=== PATIENT | female | born 2000 | race Caucasian/White ===

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

== ENCOUNTER 2022-12-12 19:20 | Emergency (ER) | payer SELFPAY | END 2022-12-12 21:19 | disposition home or self-care (01) | LOC: MW.ED 19:20 | DX: S93.402A Sprain of unspecified ligament of left ankle, initial encounter (principal); X50.1XXA Overexertion from prolonged static or awkward postures, initial encounter | CPT/HCPCS: 73610-26-LT; 73610-LT; 99283 ==

== ENCOUNTER 2023-12-14 16:00 | Inpatient (IN) | payer MEDICAID, OTHER ==
[2023-12-14] MEDS ORDERED: Misoprostol 25 MCG (1/4 of 100 MCG) Tab VAG PRN ×2 (18:07)
[2023-12-14] MEDS ORDERED: Methylergonovine 0.2 MG/1 ML Amp IM PRN (18:07)
[2023-12-14] MEDS ORDERED: Sodium Chloride 0.9% 2.5 ML Syringe FLUSH PRN (18:07)
[2023-12-14] MEDS ORDERED: Misoprostol 200 MCG Tab PO PRN (18:07)
[2023-12-14] MEDS ORDERED: Terbutaline 1 MG/ML SDV SUBCUT PRN (18:07)
[2023-12-14] MEDS ORDERED: Sodium Chloride 0.9% 20 ML SDV IV PRN (18:07)
[2023-12-14] MEDS ORDERED: Lidocaine 1% 50 ML MDV INJECT PRN (18:07)
[2023-12-14] MEDS ORDERED: Carboprost Tromethamine 250 MCG/1 mL Vial IM PRN (18:07)
[2023-12-14] MEDS ORDERED: Tranexamic Acid IN NACL,ISO-OS 1,000 MG in Premix Bag 1 BAG IV PRN (18:07)
[2023-12-14] MEDS ORDERED: Water For Irrigation,Sterile 1,000 ML Container IRR PRN (18:07)
[2023-12-14] MEDS ORDERED: Nalbuphine 10 MG/1 ML Vial IVPUSH PRN (18:07)
[2023-12-14] MEDS ORDERED: Sodium Chloride 0.9% 10 ML Syringe FLUSH PRN (18:07)
[2023-12-14] MEDS ORDERED: Oxytocin/0.9 % Sodium Chloride 30 UNIT/500 ML BAG IV SCH (18:15)
[2023-12-14 18:42] LABS: HEMATOCRIT 32.6 % (37.0-47.0); MEAN CORPUSCULAR HEMOGLOBIN 27.6 pg (28.0-32.0); MEAN CORPUSCULAR HGB CONC 33.7 g/dL (32.0-36.0); MEAN CORPUSCULAR VOLUME 81.9 fL (83.0-99.0); MEAN PLATELET VOLUME 10.9 fL (9.4-12.3); PLATELET COUNT,PLT 234 K/uL (150-400); RED BLOOD CELL COUNT 3.98 M/uL (4.10-5.30); WHITE BLOOD CELL COUNT,WBC 7.72 K/uL (3.9-11.3)
[2023-12-14] MEDS: Acetaminophen 325 MG Tab PO PRN (21:24)
[2023-12-14] MEDS ORDERED: Misoprostol 50 MCG (1/2 of 100 MCG) Tab ONE (23:08)
[2023-12-14] MEDS: Misoprostol 50 MCG (1/2 of 100 MCG) Tab VAG ONE (23:15)
[2023-12-15] MEDS: Ondansetron 4 MG/2 ML SDV IVPUSH PRN (00:02)
[2023-12-15] MEDS: Butorphanol 2 MG/ML SDV IVPUSH PRN (02:56)
[2023-12-15] MEDS: Lactated Ringers 1,000 ML IV SCH (04:02)
[2023-12-15] MEDS ORDERED: Bupivacaine 0.5% 10 ML SDV ONE (04:32)
[2023-12-15] MEDS ORDERED: Phenylephrine HCl In 0.9% NaCl 1 MG/10 ML Syringe ONE (04:32)
[2023-12-15] MEDS ORDERED: Ropivacaine HCl/PF 200 ML ONE (04:32)
[2023-12-15] MEDS: Ropivacaine HCl/PF 400 MG in Premix Bag 1 BAG EPIDUR SCH (04:35)
[2023-12-15] MEDS ORDERED: Phenylephrine HCl In 0.9% NaCl 1 MG/10 ML Syringe IVPUSH PRN (05:03)
[2023-12-15] MEDS ORDERED: ePHEDrine 50 MG/ML SDV IVPUSH PRN ×2 (05:03)
[2023-12-15] MEDS ORDERED: Bupivacaine 0.5% 10 ML SDV INJECT ONE (05:04)
[2023-12-15] MEDS ORDERED: ePHEDrine 50 MG/ML SDV IM PRN (05:04)
[2023-12-15] MEDS ORDERED: dexmedeTOMIDine HCl 200 MCG/2 ML SDV EPIDUR SCH (05:15)
[2023-12-15] MEDS: Oxytocin/0.9 % Sodium Chloride 30 UNIT/500 ML BAG IV SCH (05:50)
[2023-12-15] MEDS ORDERED: Lanolin 100% Cream 7 GM Tube TOP PRN (18:01)
[2023-12-15] MEDS ORDERED: Sennosides 8.6 MG Tab PO PRN (18:01)
[2023-12-15] MEDS: Ibuprofen 800 MG Tab PO PRN (19:16)
[2023-12-15] MEDS: Acetaminophen 500 MG Tab PO PRN (23:14)
[2023-12-15] MEDS: Witch Hazel Medicated Pads 40/Jar TOP PRN (23:15)
[2023-12-15] MEDS: Docusate Sodium 100 MG Cap PO PRN (23:15)
[2023-12-15] MEDS: Benzocaine/Menthol 20%-0.5% Spray 78 GM Cannister TOP PRN (23:16)
[2023-12-16 05:39] LABS: HEMATOCRIT 32.5 % (37.0-47.0); HEMOGLOBIN 10.4 g/dL (12.0-16.0)
== END 2023-12-17 15:08 | disposition home or self-care (01) | DRG 806 ==
LOC: MW.OB 16:00 → OBSVTOIN 12-15 16:00 → MW.OB 12-16 00:07
PROVIDERS: ADMIT Obstetrics & Gynecology; ATTEND Obstetrics & Gynecology
PROC: 10E0XZZ Delivery of Products of Conception, External Approach (ICD-10-PCS; principal; 2023-12-15)
PROC: 10907ZC Drainage of Amniotic Fluid, Therapeutic from Products of Conception, Via Natural or Artificial Opening (ICD-10-PCS; 2023-12-15)
PROC: 3E0P7VZ Introduction of Hormone into Female Reproductive, Via Natural or Artificial Opening (ICD-10-PCS; 2023-12-15)
PROC: 0UQG7ZZ Repair Vagina, Via Natural or Artificial Opening (ICD-10-PCS; 2023-12-15)
PROC: 3E0R3BZ Introduction of Anesthetic Agent into Spinal Canal, Percutaneous Approach (ICD-10-PCS; 2023-12-15)
PROC: 00HU33Z Insertion of Infusion Device into Spinal Canal, Percutaneous Approach (ICD-10-PCS; 2023-12-15)
DX: O36.5930 Maternal care for other known or suspected poor fetal growth, third trimester, not applicable or unspecified (principal); O71.4 Obstetric high vaginal laceration alone; Z37.0 Single live birth; Z3A.38 38 weeks gestation of pregnancy
CPT/HCPCS: 36415; 51702; 59025; 85014; 85018; 85027; 86592; 86850; 86900; 86901; A9270-GY; J0595; J0665; J2371; J2405; J2590; J2795; J7120